=== PATIENT | female | born 1940 | race Caucasian/White ===

== ENCOUNTER → 2017-09-17 | Outpatient (CLI) | payer MEDICARE, OTHER ==
[~2017-09-17] MED LIST: AMIT75 PO; ASPI325EC PO; CIPR250 PO; EXTRA STRENGTH500 MG PO; HYDR1TAB94 PO; LEVFLO250 PO; LEVSOD112 PO; Metamucil Smooth1 EA PO; OXYACE5T PO; OXYC5 PO; Omeprazole20 M1 PO; ROPI1 PO; ROPI2 PO; SERT50 PO; SULTRIDS PO; VEGETABLE LAXATIVE PO
== END | disposition home or self-care (01) ==
LOC: LAB 07:00 → LAB SHORT 07:00 → EDSTATUS 09-07 16:35 → LAB FUT 09-07 16:35
PROVIDERS: Internal Medicine Infectious Disease
DX: R31.9 Hematuria, unspecified (principal); R80.8 Other proteinuria
CPT/HCPCS: 81050; 84156

== ENCOUNTER → 2018-01-05 | Outpatient (CLI) | payer MEDICARE, OTHER ==
[2018-01-05 13:44] LABS: Source, Urine Clean Catch
[2018-01-05 15:13] LABS: Appearance, Urine Clear (Clear); Bilirubin, Urine Neg (Neg); Blood, Urine 4+ (Neg); Color, Urine Yellow (P-Yellow); Glucose Qualitative, Urine Neg (Neg); Ketones, Urine Neg (Neg); Leukocyte Esterase, Urine 2+ (Neg); Nitrite, Urine Neg (Neg); Protein, Urine Neg (Neg); Specific Gravity, Urine 1.015 (1.003-1.022); Urobilinogen, Urine NORM (Normal); pH, Urine 6.5 (5.0-8.0)
[2018-01-05 15:20] LABS: Squamous Epithelial Cells Mod /hpf (Few); Transitional Epithelial Cells Few /hpf (0-Rare)
[2018-01-05 15:21] LABS: Bacteria Few /hpf
[2018-01-05 15:37] LABS: Creatinine, Urine Random 84.4 mg/dL (27.00-270.00)
[2018-01-05 15:40] LABS: Microalb/Creat Ratio UR, Rand 13.744 mg/g (0.000-30.000); Microalbumin, Random Urine 11.6 mg/L (0.000-20.000)
== END | disposition home or self-care (01) ==
LOC: LAB SHORT 13:30 → LAB 13:30 → LAB FUT 01-04 16:45
PROVIDERS: Internal Medicine
DX: N39.0 Urinary tract infection, site not specified (principal); R80.0 Isolated proteinuria
CPT/HCPCS: 81001; 82043; 82570

== ENCOUNTER → 2019-04-29 | Outpatient (CLI) | payer MEDICARE, OTHER ==
[2019-04-29 13:48] LABS: Source, Urine Clean Catch
[2019-04-29 14:44] LABS: Appearance, Urine Cloudy (Clear); Bilirubin, Urine Neg (Neg); Blood, Urine 5+ (Neg); Color, Urine Yellow (P-Yellow); Glucose Qualitative, Urine Neg (Neg); Ketones, Urine 1+ (Neg); Leukocyte Esterase, Urine 3+ (Neg); Nitrite, Urine Neg (Neg); Protein, Urine 3+ (Neg); Urobilinogen, Urine 1+ (Normal)
[2019-04-29 17:42] LABS: White Blood Cells, Urine TNTC /hpf (0-5)
[2019-04-29 17:43] LABS: Bacteria Many /hpf; Calcium Oxalate Crystals Mod /hpf; Squamous Epithelial Cells Many /hpf (Few)
== END | disposition home or self-care (01) ==
LOC: LAB SHORT 13:47 → LAB 13:47
PROVIDERS: Urology
DX: Z09 Encounter for follow-up examination after completed treatment for conditions other than malignant neoplasm (principal); Z87.440 Personal history of urinary (tract) infections
CPT/HCPCS: 81001; 87077; 87086; 87186

== ENCOUNTER → 2019-05-25 | Outpatient (CLI) | payer MEDICARE, OTHER ==
[2019-05-25 15:14] LABS: Source, Urine Clean Catch
[2019-05-25 16:34] LABS: Bilirubin, Urine Neg (Neg); Blood, Urine 4+ (Neg); Glucose Qualitative, Urine Neg (Neg); Ketones, Urine 1+ (Neg); Leukocyte Esterase, Urine 3+ (Neg); Nitrite, Urine Neg (Neg); Protein, Urine 2+ (Neg); Urobilinogen, Urine 1+ (Normal)
[2019-05-25 16:51] LABS: Appearance, Urine Cloudy (Clear); Color, Urine Yellow (P-Yellow)
[2019-05-25 16:53] LABS: White Blood Cells, Urine TNTC /hpf (0-5)
[2019-05-25 16:54] LABS: Bacteria Mod /hpf; Squamous Epithelial Cells Few /hpf (Few)
== END | disposition home or self-care (01) ==
LOC: LAB SHORT 15:13 → LAB 15:13
PROVIDERS: Physician Assistant
DX: Z09 Encounter for follow-up examination after completed treatment for conditions other than malignant neoplasm (principal); Z87.440 Personal history of urinary (tract) infections
CPT/HCPCS: 81001; 87077; 87086; 87186

== ENCOUNTER → 2019-07-20 | Outpatient (CLI) | payer MEDICARE, OTHER | END | disposition home or self-care (01) | LOC: PLD 08:03 → LAB SHORT 08:03 | DX: D48.5 Neoplasm of uncertain behavior of skin (principal) | CPT/HCPCS: 88305 ==

== ENCOUNTER → 2019-07-20 | Outpatient (CLI) | payer MEDICARE, OTHER | END | disposition home or self-care (01) | LOC: LAB 10:55 → LAB SHORT 10:55 | DX: L08.0 Pyoderma (principal) | CPT/HCPCS: 87070; 87205 ==

== ENCOUNTER → 2019-11-08 | Outpatient (CLI) | payer MEDICARE, OTHER ==
[2019-11-08 14:44] LABS: Source, Urine Clean Catch
[2019-11-08 16:20] LABS: Bilirubin, Urine Neg (Neg); Blood, Urine 5+ (Neg); Glucose Qualitative, Urine Neg (Neg); Ketones, Urine 1+ (Neg); Leukocyte Esterase, Urine 3+ (Neg); Nitrite, Urine Pos (Neg); Protein, Urine 3+ (Neg); Specific Gravity, Urine 1.015 (1.003-1.022); Urobilinogen, Urine 1+ (Normal)
[2019-11-08 16:35] LABS: Color, Urine Yellow (P-Yellow)
[2019-11-08 16:36] LABS: Appearance, Urine Hazy (Clear); Bacteria Many /hpf; Red Blood Cells, Urine 25-50 /hpf (0-2); Squamous Epithelial Cells Few /hpf (Few); White Blood Cells, Urine TNTC /hpf (0-5)
== END ==
LOC: LAB 14:40 → LAB SHORT 14:40 → EDSTATUS 15:28
PROVIDERS: Physician Assistant
DX: Z09 Encounter for follow-up examination after completed treatment for conditions other than malignant neoplasm (principal); Z87.440 Personal history of urinary (tract) infections
CPT/HCPCS: 81001; 87077; 87086; 87186

== ENCOUNTER → 2019-11-24 | Outpatient (CLI) | payer MEDICARE, OTHER ==
[2019-11-24 12:04] LABS: Source, Urine Clean Catch
[2019-11-24 13:10] LABS: Bilirubin, Urine Neg (Neg); Blood, Urine 2+ (Neg); Glucose Qualitative, Urine Neg (Neg); Ketones, Urine Neg (Neg); Leukocyte Esterase, Urine 1+ (Neg); Nitrite, Urine Neg (Neg); Protein, Urine Neg (Neg); Urobilinogen, Urine NORM (Normal)
[2019-11-24 13:24] LABS: Appearance, Urine Hazy (Clear); Color, Urine Yellow (P-Yellow)
[2019-11-24 13:25] LABS: Bacteria Rare /hpf; Squamous Epithelial Cells Few /hpf (Few); Transitional Epithelial Cells Mod /hpf (0-Rare); Yeast/Fungi Urine Not Seen /hpf
== END | disposition home or self-care (01) ==
LOC: LAB SHORT 12:03 → OLS 12:03 → LAB FUT 11-07 12:55
PROVIDERS: Physician Assistant
DX: N39.0 Urinary tract infection, site not specified (principal)
CPT/HCPCS: 81001; 87077; 87086; 87186

== ENCOUNTER → 2020-01-07 | Outpatient (CLI) | payer MEDICARE, OTHER ==
[2020-01-07 11:51] LABS: Source, Urine Clean Catch
[2020-01-07 13:28] LABS: Bilirubin, Urine Neg (Neg); Blood, Urine 5+ (Neg); Glucose Qualitative, Urine Neg (Neg); Ketones, Urine 1+ (Neg); Leukocyte Esterase, Urine 3+ (Neg); Nitrite, Urine Pos (Neg); Protein, Urine 4+ (Neg); Urobilinogen, Urine NORM (Normal)
[2020-01-07 13:40] LABS: Appearance, Urine Cloudy (Clear); Color, Urine Yellow (P-Yellow)
[2020-01-07 13:45] LABS: Bacteria Many /hpf; Squamous Epithelial Cells Few /hpf (Few); White Blood Cells, Urine TNTC /hpf (0-5)
[2020-01-07 13:46] LABS: Mucus Light (0-Heavy)
== END | disposition home or self-care (01) ==
LOC: LAB SHORT 11:41 → OLS 11:41 → LAB FUT 01-05 10:15
PROVIDERS: Physician Assistant
DX: N39.0 Urinary tract infection, site not specified (principal)
CPT/HCPCS: 81001

== ENCOUNTER → 2020-03-27 | Outpatient (CLI) | payer MEDICARE, OTHER ==
[2020-03-27 15:00] LABS: Source, Urine Clean Catch
[2020-03-27 17:20] LABS: Bilirubin, Urine Neg (Neg); Blood, Urine 5+ (Neg); Glucose Qualitative, Urine Neg (Neg); Ketones, Urine 1+ (Neg); Leukocyte Esterase, Urine 3+ (Neg); Nitrite, Urine Neg (Neg); Protein, Urine 3+ (Neg); Urobilinogen, Urine 1+ (Normal)
[2020-03-27 17:26] LABS: Appearance, Urine Cloudy (Clear); Color, Urine Yellow (P-Yellow)
[2020-03-27 17:28] LABS: White Blood Cells, Urine TNTC /hpf (0-5)
[2020-03-27 17:29] LABS: Bacteria Many /hpf; Squamous Epithelial Cells Mod /hpf (Few)
== END | disposition home or self-care (01) ==
LOC: LAB 14:46 → LAB SHORT 14:46 → LAB FUT 03-27 14:50
PROVIDERS: Physician Assistant
DX: N39.0 Urinary tract infection, site not specified (principal)
CPT/HCPCS: 81001; 87077; 87086; 87186

== ENCOUNTER → 2020-10-03 | Outpatient (CLI) | payer MEDICARE, OTHER ==
[2020-10-03 13:36] LABS: Source, Urine Clean Catch
[2020-10-03 15:32] LABS: Appearance, Urine Cloudy (Clear); Bilirubin, Urine Neg (Neg); Blood, Urine 5+ (Neg); Color, Urine Yellow (P-Yellow); Glucose Qualitative, Urine Neg (Neg); Ketones, Urine Neg (Neg); Leukocyte Esterase, Urine 3+ (Neg); Nitrite, Urine Neg (Neg); Protein, Urine 2+ (Neg); Urobilinogen, Urine 1+ (Normal)
[2020-10-03 15:52] LABS: Bacteria Many /hpf; Red Blood Cells, Urine TNTC /hpf (0-2); Squamous Epithelial Cells Few /hpf (Few); White Blood Cells, Urine TNTC /hpf (0-5)
== END | disposition home or self-care (01) ==
LOC: LAB 10:22 → LAB SHORT 10:22
PROVIDERS: Urology
DX: N39.0 Urinary tract infection, site not specified (principal)
CPT/HCPCS: 81001; 87077; 87086; 87186

== ENCOUNTER → 2020-12-12 | Outpatient (CLI) | payer MEDICARE, OTHER | LOC: LAB SHORT 13:40 | DX: D48.5 Neoplasm of uncertain behavior of skin (principal); L57.0 Actinic keratosis | CPT/HCPCS: 88305 ==

== ENCOUNTER → 2020-12-24 | Outpatient (CLI) | payer MEDICARE, OTHER ==
[2020-12-24 10:08] LABS: Source, Urine Clean Catch
[2020-12-24 11:36] LABS: Appearance, Urine Cloudy (Clear); Bilirubin, Urine Neg (Neg); Blood, Urine 3+ (Neg); Color, Urine Yellow (P-Yellow); Glucose Qualitative, Urine Neg (Neg); Ketones, Urine Neg (Neg); Leukocyte Esterase, Urine 3+ (Neg); Nitrite, Urine Pos (Neg); Protein, Urine 2+ (Neg); Specific Gravity, Urine 1.015 (1.003-1.022); Urobilinogen, Urine NORM (Normal); pH, Urine 6.5 (5.0-8.0)
[2020-12-24 12:01] LABS: Bacteria Many /hpf; Squamous Epithelial Cells Few /hpf (Few); Transitional Epithelial Cells Rare /hpf (0-Rare); White Blood Cells, Urine TNTC /hpf (0-5)
== END | disposition home or self-care (01) ==
LOC: LAB SHORT 10:06 → LAB 10:06
PROVIDERS: Urology
DX: Z09 Encounter for follow-up examination after completed treatment for conditions other than malignant neoplasm (principal); Z87.440 Personal history of urinary (tract) infections
CPT/HCPCS: 36415; 81001; 87077; 87086; 87186

== ENCOUNTER → 2021-07-12 | Outpatient (CLI) | payer MEDICARE, OTHER ==
[2021-07-12 11:16] LABS: Source, Urine Clean Catch
[2021-07-12 13:17] LABS: Appearance, Urine Clear (Clear); Bilirubin, Urine Neg (Neg); Blood, Urine 4+ (Neg); Color, Urine Yellow (P-Yellow); Glucose Qualitative, Urine Neg (Neg); Ketones, Urine Neg (Neg); Leukocyte Esterase, Urine 3+ (Neg); Nitrite, Urine Neg (Neg); Protein, Urine 1+ (Neg); Urobilinogen, Urine 1+ (Normal)
[2021-07-12 13:38] LABS: Bacteria Few /hpf; Squamous Epithelial Cells Mod /hpf (Few)
[2021-07-12 13:39] LABS: Mucus Light (0-Heavy)
== END | disposition home or self-care (01) ==
LOC: LAB 08:54 → LAB SHORT 08:54 → LAB FUT 07-11 16:55 → EDSTATUS 07-11 16:55
PROVIDERS: Physician Assistant
DX: N39.0 Urinary tract infection, site not specified (principal)
CPT/HCPCS: 81001; 87086

== ENCOUNTER → 2021-07-22 | Outpatient (CLI) | payer MEDICARE, OTHER ==
[2021-07-22 17:37] LABS: Appearance, Urine Hazy (Clear); Bilirubin, Urine Neg (Neg); Blood, Urine 5+ (Neg); Color, Urine Yellow (P-Yellow); Glucose Qualitative, Urine Neg (Neg); Ketones, Urine Neg (Neg); Leukocyte Esterase, Urine 2+ (Neg); Nitrite, Urine Neg (Neg); Protein, Urine 3+ (Neg); Specific Gravity, Urine 1.015 (1.003-1.022); Urobilinogen, Urine NORM (Normal); pH, Urine 6.5 (5.0-8.0)
[2021-07-22 18:28] LABS: Bacteria Mod /hpf; Squamous Epithelial Cells Few /hpf (Few)
== END ==
LOC: LAB SHORT 15:32 → LAB 15:32 → LAB FUT 07-11 10:10
PROVIDERS: Physician Assistant
DX: N39.0 Urinary tract infection, site not specified (principal)
CPT/HCPCS: 81001; 87077; 87086; 87186

== ENCOUNTER → 2021-08-20 | Outpatient (CLI) | payer MEDICARE, OTHER | END | disposition home or self-care (01) | LOC: LAB 11:16 → LAB SHORT 11:16 | DX: N39.0 Urinary tract infection, site not specified (principal) | CPT/HCPCS: 87077; 87086; 87186 ==

== ENCOUNTER → 2021-11-06 | Outpatient (CLI) | payer MEDICARE, OTHER ==
[2021-11-06 13:09] LABS: Source, Urine Clean Catch
[2021-11-06 15:39] LABS: Bilirubin, Urine Neg (Neg); Blood, Urine 4+ (Neg); Glucose Qualitative, Urine Neg (Neg); Ketones, Urine Neg (Neg); Leukocyte Esterase, Urine 1+ (Neg); Nitrite, Urine Neg (Neg); Protein, Urine 1+ (Neg); Specific Gravity, Urine 1.015 (1.003-1.022); Urobilinogen, Urine NORM (Normal)
[2021-11-06 15:50] LABS: Appearance, Urine Clear (Clear); Color, Urine Pale Yellow (P-Yellow)
[2021-11-06 15:51] LABS: Bacteria Few /hpf; Squamous Epithelial Cells Rare /hpf (Few)
== END | disposition home or self-care (01) ==
LOC: LAB SHORT 13:05 → LAB FUT 11-05 15:35
PROVIDERS: Urology
DX: N39.0 Urinary tract infection, site not specified (principal); Z87.440 Personal history of urinary (tract) infections
CPT/HCPCS: 81001; 87077; 87086; 87186

== ENCOUNTER → 2022-01-09 | Outpatient (CLI) | payer MEDICARE, OTHER | END | disposition home or self-care (01) | LOC: PLD 15:41 → LAB SHORT 15:41 → LAB 15:41 | DX: R23.4 Changes in skin texture (principal) | CPT/HCPCS: 88305; 88312 ==

== ENCOUNTER → 2022-11-11 | Outpatient (CLI) | payer MEDICARE, OTHER ==
[2022-11-11 11:23] LABS: Source, Urine Voided
[2022-11-11 13:25] LABS: Appearance, Urine Cloudy (Clear); Bilirubin, Urine Neg (Neg); Blood, Urine 5+ (Neg); Color, Urine Yellow (P-Yellow); Glucose Qualitative, Urine Neg (Neg); Ketones, Urine 2+ (Neg); Leukocyte Esterase, Urine 3+ (Neg); Nitrite, Urine Neg (Neg); Protein, Urine 3+ (Neg); Urobilinogen, Urine NORM (Normal)
[2022-11-11 13:40] LABS: Bacteria Many /hpf; Red Blood Cells, Urine 25-50 /hpf (0-2); Squamous Epithelial Cells Few /hpf (Few); Transitional Epithelial Cells Rare /hpf (0-Rare); White Blood Cells, Urine 50-100 /hpf (0-5)
== END | disposition home or self-care (01) ==
LOC: LAB SHORT 11:21 → LAB 11:21 → LAB FUT 11-11 14:20
PROVIDERS: Urology
DX: Z09 Encounter for follow-up examination after completed treatment for conditions other than malignant neoplasm (principal); Z87.440 Personal history of urinary (tract) infections
CPT/HCPCS: 81001; 87077; 87086; 87186

== ENCOUNTER 2022-11-24 11:38 | Day surgery (SDC) | payer MEDICARE, OTHER ==
[~2022-11-24] VITALS: Ht 167.6 cm; Wt 54.1 kg
[2022-11-24] MEDS ORDERED: Amitriptyline H10 MG (12:11)
[2022-11-24] MEDS ORDERED: ALBU2.5V5 (12:11)
[2022-11-24] MEDS ORDERED: BUDE.25 (12:11)
[2022-11-24] MEDS ORDERED: GABA100 (12:12)
[2022-11-24] MEDS ORDERED: EUTHYROX50 MCG (12:12)
[2022-11-24] MEDS ORDERED: SENNA LAXATIVE8.6 MG (12:12)
[2022-11-24] MEDS ORDERED: OMEP20ER (12:12)
[2022-11-24] MEDS ORDERED: ESTRADIOL42.5 GM (12:12)
[2022-11-24] MEDS ORDERED: HIPREX1 G1 (12:12)
== END 2022-11-24 14:49 | disposition home or self-care (01) ==
LOC: ORSCSDS 11:38
PROVIDERS: Internal Medicine Gastroenterology
PROC: 0DJD8ZZ Inspection of Lower Intestinal Tract, Via Natural or Artificial Opening Endoscopic (ICD-10-PCS; principal; 2022-11-24 13:00)
PROC: 0DB58ZX Excision of Esophagus, Via Natural or Artificial Opening Endoscopic, Diagnostic (ICD-10-PCS; principal; 2022-11-24 13:00)
DX: R19.5 Other fecal abnormalities (principal); K21.00 Gastro-esophageal reflux disease with esophagitis, without bleeding; K57.30 Diverticulosis of large intestine without perforation or abscess without bleeding; K22.2 Esophageal obstruction; J44.9 Chronic obstructive pulmonary disease, unspecified; G47.33 Obstructive sleep apnea (adult) (pediatric); E03.9 Hypothyroidism, unspecified; Z79.899 Other long term (current) drug therapy
CPT/HCPCS: 88305; 88312; J2704; J7120

== ENCOUNTER → 2023-06-01 | Outpatient (CLI) | payer MEDICARE, OTHER ==
[~2023-06-01] MED LIST changes: +ALBU2.5V5; +Amitriptyline H10 MG; +BUDE.25; +ESTRADIOL42.5 GM; +EUTHYROX50 MCG; +GABA100; +HIPREX1 G1; +OMEP20ER; +SENNA LAXATIVE8.6 MG
[2023-06-01 16:07] LABS: Source, Urine Clean Catch
[2023-06-01 18:38] LABS: Appearance, Urine Cloudy (Clear); Blood, Urine 4+ (Neg); Color, Urine Yellow (P-Yellow); Glucose Qualitative, Urine Neg (Neg); Ketones, Urine 2+ (Neg); Leukocyte Esterase, Urine 2+ (Neg); Nitrite, Urine Neg (Neg); Protein, Urine 2+ (Neg); Specific Gravity, Urine 1.015 (1.003-1.022); Urobilinogen, Urine 1+ (Normal)
[2023-06-01 19:01] LABS: Bilirubin, Urine 1+ (Neg)
[2023-06-01 19:04] LABS: Bacteria Many /hpf; Squamous Epithelial Cells Many /hpf (Few); White Blood Cells, Urine 50-100 /hpf (0-5)
[2023-06-01 19:05] LABS: Transitional Epithelial Cells Few /hpf (0-Rare)
== END ==
LOC: LAB SHORT 16:05 → LAB 16:05
PROVIDERS: Urology
DX: Z87.440 Personal history of urinary (tract) infections (principal)
CPT/HCPCS: 81001; 87086

== ENCOUNTER → 2023-09-14 | Outpatient (CLI) | payer MEDICARE, OTHER | LOC: LAB SHORT 11:41 → LAB 11:41 | DX: L57.0 Actinic keratosis (principal) | CPT/HCPCS: 88305 ==

== ENCOUNTER 2024-08-17 00:20 | Emergency (ER) | payer MEDICARE, OTHER ==
[~2024-08-17] VITALS: Ht 170.2 cm; Wt 56.7 kg
[2024-08-17 01:07] VITALS: BP 152/95
[2024-08-17 01:50] LABS: Albumin, Blood 3.2 g/dL (3.4-5.0); Albumin/Globulin Ratio 0.7 (0.8-1.8); Bilirubin, Total 0.5 mg/dL (0.1-1.0); Bun/Creatinine Ratio 20.6 (12.0-20.0); Calcium, Blood 8.6 mg/dL (8.5-10.1); Creatinine, Blood 0.68 mg/dL (0.40-1.00); Globulin, Blood 4.6 g/dL (2.2-4.0); Potassium, Blood 3.5 mmol/L (3.5-5.5); Total Protein, Blood 7.8 g/dL (6.4-8.2)
[2024-08-17 01:57] LABS: BASOPHILS ABSOLUTE AUTO 0.07 K/mm3 (0.00-0.23); BASOPHILS PERCENT AUTO 1 % (0-2); EOSINOPHILS ABSOLUTE AUTO 0.07 K/mm3 (0.00-0.68); EOSINOPHILS PERCENT AUTO 1 % (0-6); Hematocrit 36.1 % (33.0-51.0); Hemoglobin 12.6 g/dL (11.5-16.0); IMMATURE GRAN ABSOLUTE AUTO 0.03 K/mm3 (0.00-0.10); IMMATURE GRAN PERCENT AUTO 0 % (0-1); LYMPHOCYTES ABSOLUTE AUTO 1.17 K/mm3 (0.84-5.20); LYMPHOCYTES PERCENT AUTO 15 % (21-46); MONOCYTES ABSOLUTE AUTO 0.73 K/mm3 (0.16-1.47); MONOCYTES PERCENT AUTO 9 % (4-13); Mean Corpuscular HGB 32.8 pg (26.0-34.0); Mean Corpuscular HGB Conc 34.9 g/dL (31.5-36.5); Mean Corpuscular Volume 94 fL (80-100); NEUTROPHILS ABSOLUTE AUTO 5.71 K/mm3 (1.96-9.15); NEUTROPHILS PERCENT AUTO 73 % (41-73); RDW Standard Deviation 44.7 fL (35.1-46.3); Red Blood Cell Count 3.84 M/mm3 (3.80-5.20); White Blood Cell Count 7.78 K/mm3 (4.00-11.30)
[2024-08-17 01:59] LABS: Influenza A, PCR NEGATIVE (NEGATIVE); Influenza B, PCR NEGATIVE (NEGATIVE); Resp Syncytial Virus, PCR NEGATIVE (NEGATIVE)
[2024-08-17 02:05] LABS: Platelet Count 287 K/mm3 (150-400)
[2024-08-17 02:09] LABS: SARS-Cov-2 (COVID-19) PCR, MMC POSITIVE (NEGATIVE)
[2024-08-17] MEDS ORDERED: PAXLOVID 300-11 EAC1 PO (02:39)
== END 2024-08-17 02:46 | disposition home or self-care (01) ==
LOC: ER 00:20
PROVIDERS: Emergency Medicine
DX: U07.1 COVID-19 (principal); E03.9 Hypothyroidism, unspecified; J45.909 Unspecified asthma, uncomplicated; G47.30 Sleep apnea, unspecified; Z79.51 Long term (current) use of inhaled steroids; Z79.899 Other long term (current) drug therapy; Z88.0 Allergy status to penicillin
CPT/HCPCS: 0241U; 80053; 85025; 99284

== ENCOUNTER 2025-02-24 20:17 | Emergency (ER) | payer MEDICARE, OTHER ==
[~2025-02-24] VITALS: Ht 167.6 cm; Wt 56.7 kg
[~2025-02-24 20:17] MED LIST changes: +PAXLOVID 300-11 EAC1 PO
[2025-02-24 21:00] VITALS: BP 154/78
== END 2025-02-24 21:30 | disposition home or self-care (01) ==
LOC: ER 20:17
DX: S40.012A Contusion of left shoulder, initial encounter (principal); E03.9 Hypothyroidism, unspecified; J45.909 Unspecified asthma, uncomplicated; G47.30 Sleep apnea, unspecified; W18.30XA Fall on same level, unspecified, initial encounter; Z79.899 Other long term (current) drug therapy; Z88.0 Allergy status to penicillin
CPT/HCPCS: 73030; 99283-25

== ENCOUNTER 2025-02-26 13:27 | Emergency (ER) | payer MEDICARE, OTHER ==
[~2025-02-26] VITALS: Ht 167.6 cm; Wt 58.1 kg
[2025-02-26 13:52] VITALS: BP 147/80
== END 2025-02-26 14:06 | disposition home or self-care (01) ==
LOC: ER 13:27
DX: S42.002A Fracture of unspecified part of left clavicle, initial encounter for closed fracture (principal); Z88.0 Allergy status to penicillin; Z79.899 Other long term (current) drug therapy; Z79.890 Hormone replacement therapy; Z59.89 Other problems related to housing and economic circumstances; W01.0XXA Fall on same level from slipping, tripping and stumbling without subsequent striking against object, initial encounter
CPT/HCPCS: 99282